=== PATIENT | female | born 1985 | race Caucasian/White ===

== ENCOUNTER 2018-02-18 20:09 | Emergency (ER) | payer OTHER ==
[~2018-02-18] VITALS: Ht 167.6 cm; Wt 113.4 kg
[2018-02-18 22:21] VITALS: Ht 167.6 cm; Wt 113.4 kg
== END 2018-02-18 20:54 | disposition expired ==
LOC: ED 20:09 → EDBD 20:09 → ED 20:54
DX: I46.8 Cardiac arrest due to other underlying condition (principal); V89.2XXA Person injured in unspecified motor-vehicle accident, traffic, initial encounter; Y93.89 Activity, other specified; Y99.8 Other external cause status; Y92.89 Other specified places as the place of occurrence of the external cause
CPT/HCPCS: 32551; J0171; J3490